=== PATIENT | male | born 1995 | race Caucasian/White ===

== ENCOUNTER 2019-02-24 12:40 | Emergency (ER) | payer OTHER, SELFPAY ==
[2019-02-24 12:48] VITALS: BP 124/67; PULSE 69; RESP 20; TEMP 36.7; O2SAT 100; BMI 24.1
--- NOTE | 2019-02-24 12:54 | ED_ITS ---
HPI - Skin/Abscess/Foreign Bdy <CLAUDIA Ni - Last Filed: 02/24/19 13:33> General Chief complaint: Skin/Abscess/Foreign Body Stated complaint: poison zulema x12 days Time Seen by Provider: 02/24/19 12:45 Source: patient Mode of arrival: ambulatory Limitations: no limitations History of Present Illness HPI narrative: The patient is a 23-year-old male nonsmoker who presents with a chief complaint of poison zulema. He states that he crawled through a garden, and then developed poison zulema after. It started 12 days ago. He states he is patches on his legs arms and genitals. Denies any shortness of breath. He states that he has tried some topical Benadryl, which he started for 2 days ago. He states he did not take anything for the previous 10 days. He denies any fevers nausea vomiting diarrhea, chest pain shortness of breath. He states he has had episodes of poison zulema like this and has required steroids in the past, which is what he is requesting now. He states he cannot take the itching anymore. Related Data Previous Rx's Medication Instructions Recorded prednisone 50 mg PO DAILY #5 tab 02/24/19 Review of Systems <CLAUDIA Ni - Last Filed: 02/24/19 13:33> Review of Systems Narrative: GENERAL: Denies chills, fatigue, malaise, fever, sweats. HEENT: Denies sinus pain, ear pain, sore throat, difficulty swallowing, dizziness. RESPIRATORY: Denies dyspnea, cough, wheezing, hemoptysis, sputum. CARDIOVASCULAR: Denies chest pain, palpitations, orthopnea, edema, GASTROINTESTINAL: Denies nausea, vomiting, abdominal pain, diarrhea, constipation, melena. : Denies dysuria, frequency, incontinence, hematuria, urinary retention. MUSCULOSKELETAL: denies weakness, joint pain, or bony pain SKIN: See HPI NEUROLOGIC: Denies weakness, headache, numbness, change in speech, confusion, seizures, incoordination. PSYCHIATRIC: No concerning psychosocial issues. 12 point review of systems is negative except for those stated above PFSH <CLAUDIA Ni - Last Filed: 02/24/19 13:33> Medical History (Updated 02/24/19 @ 13:29 by CLAUDIA Ni) Family history non-contributory (Acute) Social History Smoking Status: Never smoker Social History Smoking Status: Never smoker Exam <CLAUDIA Ni - Last Filed: 02/24/19 13:33> Narrative Exam Narrative: GENERAL: This is a well-nourished, well-developed patient, in no acute distress HEAD: Atraumatic. Normocephalic. No temporal or scalp tenderness. EYES: Pupils equal round and reactive. Extraocular motions intact. No scleral icterus. No injection or drainage. ENT: Nose without bleeding, purulent drainage or septal hematoma. Throat without erythema, tonsillar hypertrophy or exudate. Uvula midline. Airway patent. NECK: Trachea midline. No JVD or lymphadenopathy. Supple, nontender, no meningeal signs. CARDIOVASCULAR: Regular rate and rhythm RESPIRATORY: Clear to auscultation. Breath sounds equal bilaterally. No wheezes, rales, or rhonchi. No cough. No increased respiratory effort. No accessory muscle use. GASTROINTESTINAL: Abdomen soft, non-tender, nondistended. No hepato- splenomegaly, or palpable masses. No guarding. Active bowel sounds all 4 quadrants. EXTREMITIES: No clubbing, cyanosis, or edema. No joint tenderness, effusion, or edema noted. BACK: Nontender without deformity or crepitance. No flank tenderness. NEURO: AOx3. SKIN: 3 circular cm of crusting pustules on posterior left lower leg, also noted on anterior aspect of right forearm. Crusting pustules also noted across lower abdomen and genitals, along right side of penis on to testicles. Initial Vital Signs Initial Vital Signs: Vital Signs Temperature 98.1 F 02/24/19 12:48 Pulse Rate 69 02/24/19 12:48 Respiratory Rate 20 02/24/19 12:48 Blood Pressure 124/67 02/24/19 12:48 Pulse Oximetry 100 02/24/19 12:48 <Trent Lopez DO - Last Filed: 02/24/19 13:38> Initial Vital Signs Initial Vital Signs: Vital Signs Temperature 98.1 F 02/24/19 12:48 Pulse Rate 69 02/24/19 12:48 Respiratory Rate 20 02/24/19 12:48 Blood Pressure 124/67 02/24/19 12:48 Pulse Oximetry 100 02/24/19 12:48 Course <Yokastaterence MartinezCLAUDIA romero - Last Filed: 02/24/19 13:33> Vital Signs Vital signs: Vital Signs - 8 hr 02/24/19 12:48 Temperature 98.1 F Pulse Rate 69 Respiratory Rate 20 Blood Pressure 124/67 Pulse Oximetry 100 <Trent Lopez DO - Last Filed: 02/24/19 13:38> Vital Signs Vital signs: Vital Signs - 8 hr 02/24/19 12:48 Temperature 98.1 F Pulse Rate 69 Respiratory Rate 20 Blood Pressure 124/67 Pulse Oximetry 100 MDM - Skin/Abscess/Foreign Bdy <Yokasta CLAUDIA Monsivais - Last Filed: 02/24/19 13:33> MDM Narrative Medical decision making narrative: The patient is a 23-year-old male who presents with a chief complaint of poison zulema. Genital exam was performed with Ana CHAPMAN standby at bedside. The patient's exam is concerning for poison zulema, so I started him on a course of p.o. steroids. I did discuss at length that there are other etiologies that could cause pustules in the genital region, such as genital herpes. Discussed at length that he should follow up with his primary care provider. If it does not get better, should consider these other options. Discussed coming back to the ER for any acute concerns such as shortness of breath etc. Patient has no questions or concerns upon discharge. Discharge Plan Departure Patient Disposition: Home Clinical Impression: Contact dermatitis due to poison zulema Discharge Date/Time: 02/24/19 13:14 Instructions: Poison Zulema, Poison [place], Poison [place], DI for Contact Dermatitis Activity Restrictions/Additional Instructions: I have given you a prescription for 5 days of steroids. Please follow up with your primary care provider in the next few days. Please wash your hands immediately after you might have touched poison zulema or at least before you touch your genitals. Please remember if this steroids do not help, genital herpes can have a similar appearance in your groin. However given your rash elsewhere, I believe this is not likely at this point time. However please remember if it does not get better, this may be something to look into. I also suggest medications anet-gim-bpyazkl such as Benadryl. Prescriptions: New prednisone 50 mg tablet 50 mg PO DAILY Qty: 5 RF: 0 Referrals: [facility] [Provider Group] <Trent Lopez, - Last Filed: 02/24/19 13:38> Sign Out Provider Sign Out Attestation: I was available for consultation during this patient's emergency department encounter
--- NOTE | 2019-02-24 12:57 | PC.NURSE ---
pt reports he got exposed to poison aby, rash on back of leg, abdomen, and groin. groin has large rash on penis, scrotum, inner thigh. exam done as standby RN with GASTON Templeton.
== END 2019-02-24 13:14 | disposition home or self-care (01) ==
PROVIDERS: Emergency Provider Nurse Practitioner Family
DX: L23.7 Allergic contact dermatitis due to plants, except food (principal)
CPT/HCPCS: 99282

== ENCOUNTER 2020-12-12 19:00 | Emergency (ER) | payer OTHER, SELFPAY ==
[2020-12-12 19:19] VITALS: BP 141/73; PULSE 81; RESP 16; TEMP 36.6; O2SAT 100; BMI 26.0
--- NOTE | 2020-12-12 19:26 | ED.SKABFB ---
HPI - Skin/Abscess/Foreign Bdy General Chief complaint: Skin/Abscess/Foreign Body Stated complaint: Bump On Elbow, Redness Time Seen by Provider: 12/12/20 19:05 Source: patient Mode of arrival: Ambulatory Limitations: no limitations History of Present Illness HPI narrative: 25-year-old male nonsmoker with noncontributory medical history presents with a chief complaint of pain and redness overlying his right elbow for the past few days. He denies any injury or trauma. He denies any systemic symptoms such as fever, chills nor nausea or vomiting. Was seen and evaluated by his providers and put on an antibiotic for cellulitis. He presents today because things do not seem to be improving. He has taken 3 or 4 doses of the antibiotic but had not taken it today because he got too busy. He is able to flex and extend his elbow but with a minimally decreased range of motion secondary to pain. He has no red streaks and is otherwise well Related Data Home Medications Medication Instructions Recorded Confirmed ibuprofen 600 mg PO TID PRN 12/12/20 12/12/20 sulfamethoxazole-trimethoprim 1 tab PO BID 12/12/20 12/12/20 Review of Systems Constitutional Constitutional: Denies chills, Denies fatigue, Denies fever(s), Denies frequent falls, Denies lethargy and Denies weakness Eyes Eyes: Denies change in vision, Denies eye discharge, Denies irritation and Denies loss of vision ENT Ears, Nose, Mouth, and Throat: Denies change in voice, Denies dizziness, Denies neck pain, Denies sore throat and Denies throat swelling Cardiovascular Cardiovascular: Denies chest pain, Denies irregular heart rhythm, Denies lightheadedness, Denies palpitations, Denies dyspnea, Denies dyspnea on exertion and Denies orthopnea Respiratory Respiratory: Denies cough, Denies dyspnea, Denies dyspnea on exertion and Denies wheezing Gastrointestinal Gastrointestinal: Denies abdominal pain, Denies change in bowel habits, Denies diarrhea, Denies nausea and Denies vomiting Musculoskeletal Musculoskeletal: Denies neck pain and Denies numbness Integumentary/Breasts Skin/Breast: Denies pruritus, Reports erythema, Denies rash, Reports skin pain, Reports skin swelling and Denies wounds Neurologic Neurologic: Denies behavioral changes, Denies confusion, Denies dizziness, Denies frequent falls, Denies loss of vision, Denies numbness and Denies weakness Psychiatric Psychiatric: Denies anxiety, Denies behavioral changes, Denies confusion, Denies depression, Denies homicidal ideation and Denies suicidal ideation Endocrine Endocrine: Denies fatigue, Denies flushing and Denies palpitations Hematologic/Lymphatic Hematologic/Lymphatic: Denies easy bruising Allergic/Immunologic Allergic/Immunologic: Denies urticaria, Denies throat swelling and Denies wheezing Patient History Medical History Family history non-contributory Social History Smoking Status: Never smoker Smoking Status: Never smoker alcohol intake frequency: a few times a month Substance Use Type: does not use Exam Narrative Exam Narrative: GEN: AOx3 and in mild distress EYES: Pupils are equal, round, and reactive to light and accommodation. Extraoccular muscles are intact bilaterally. There is no subconjunctival hemorrhage or exudate. CHEST: Lungs are clear to auscultation bilaterally and free of wheezes, rales, or rhonchi. Heart rate is regular rhythm, there are no murmurs, clicks, rubs, or gallops. There is no chest wall tenderness. ABD: Abdomen is soft and nontender. There is no guarding or rebound. Bowel sounds are normal in all 4 quadrants. There is no mass or organomegaly. EXT: Patient has full range of motion of the right elbow with flexion, extension, pronation and supination. The erythema is limited to overlying the olecranon suggesting a bursitis with cellulitis as opposed to septic arthritis. There is no lymphangitis. SKIN: Otherwise Warm, pink, and dry. No erythema or rash Initial Vital Signs Initial Vital Signs: Vital Signs Temperature 97.8 F 12/12/20 19:19 Pulse Rate 81 12/12/20 19:19 Respiratory Rate 16 12/12/20 19:19 Blood Pressure 141/73 H 12/12/20 19:19 Pulse Oximetry 100 12/12/20 19:19 Course Vital Signs Vital signs: Vital Signs - 8 hr 12/12/20 19:19 Temperature 97.8 F Pulse Rate 81 Respiratory Rate 16 Blood Pressure 141/73 H Pulse Oximetry 100 MDM - Skin/Abscess/Foreign Bdy MDM Narrative Medical decision making narrative: Septic arthritis and gouty arthritis are considered however patient has no systemic symptoms and impressive range of motion for this to be the diagnosis. Additionally we had a lengthy discussion about whether not to consider this a antibiotic failure or if it is just too early. He has only had 3-4 doses and actually did not take any earlier today so I recommended he stay on the same antibiotic unless he had develops worsening symptoms a few days down the line or develops systemic findings. Furthermore this is most consistent with a septic bursitis however there is no evidence of a sufficient amount of induration or fluctuance overlying the elbow to suggest that an incision and drainage or needle aspiration would be beneficial. Return precautions given and questions answered to his apparent satisfaction Discharge Plan Departure Patient Disposition: Home Clinical Impression: Septic olecranon bursitis of right elbow Instructions: DI for Bursitis Activity Restrictions/Additional Instructions: *You have been diagnosed with [right olecranon bursitis ] *What to do: *Please continue to take your regular medications as directed. [ ] New medication prescriptions sent to your pharmacy: [ ] [ ] New medication written as a paper prescription [ ] No new medications given *Please follow up with your primary care provider in 2-3 days, call for an appointment. Let them know you were seen in the Emergency Department and that we ask that you be seen in follow up. We will electronically transmit a record of today's note if your PCP is in our system *If you do not have a primary care provider please contact the [facility] Resource line at [phone]. They will ask some questions about your medical history and help get you set up with a doctor in the community. *Return to Emergency Department if you should have any new, worsening or concerning symptoms, such as [fever greater than 101 F, shaking chills, worsening pain, persistent vomiting or other bothersome symptoms] Prescriptions: No Action sulfamethoxazole-trimethoprim 800-160 mg tablet 1 tab PO BID RF: 0 ibuprofen 600 mg tablet 600 mg PO TID PRN (Reason: Pain (Scale Score 7-10)) RF: 0 Referrals: [facility] [Outside]
== END 2020-12-12 19:49 | disposition home or self-care (01) ==
PROVIDERS: Emergency Provider Emergency Medicine
DX: M71.121 Other infective bursitis, right elbow (principal)
CPT/HCPCS: 99281

== ENCOUNTER 2023-04-21 12:32 | Day surgery (SDC) | payer OTHER, SELFPAY ==
[2023-04-15 11:29] VITALS: BMI 24.4
[2023-04-21] VITALS (7 sets, daily range): BP systolic 115–136; BP diastolic 60–87; PULSE 60–91; RESP 11–20; TEMP 36.3–37.1; O2SAT 97–100; BMI 24.5
[2023-04-21] MEDS: LACTATED RINGERS 1,000 ML 42 ML IV (12:53)
[2023-04-21] MEDS: ACETAMINOPHEN 325 MG TABLET 975 MG PO (13:03)
[2023-04-21] MEDS: OXYMETAZOLINE NASAL SPRAY 30 ML 2 SPRAYS NASAL ×2 (13:04→14:18)
--- NOTE | 2023-04-21 13:38 | PM.PREOP ---
Pre-operative Note Interval Note History & Physical reviewed/Exam performed by Physician: Yes Changes to H&P: No
--- NOTE | 2023-04-21 13:40 | PM.OP.1 ---
Operative Date/Time/Diagnoses Date of procedure: 04/21/23 Time of procedure: 15:21 Pre-op diagnosis: Nasal airway obstruction, septal deviation, sebastian bullosa left middle turbinate, inferior turbinate hypertrophy Post-op diagnosis: same Procedure & Clinicians Procedure: 1. Left endoscopic sebastian bullosa resection 2. Septoplasty 3. Bilateral inferior turbinate reduction via intramural cautery Same procedure as scheduled: Yes Indications: 27 Year old with the above diagnoses incompletely managed with medical therapy presents for the above procedure. Following discussion of the material risks benefits complications and alternatives, the patient elected to proceed. Surgeon: Gus George Click Yes if Unassisted: Yes Anesthesia Type: General and Local Operative Notes Findings: 3+ right septal deviation, large sebastian bullosa of the left middle turbinate, resected. Healthy mucosa. Ixxd-tnhwikd-ifof-right inferior turbinate hypertrophy. Caudal septum bowed to the left inferiorly, reduced. Estimated Blood Loss (mL): 30 Procedure in detail: Following identification and confirmation of consent as well as preoperative Afrin nasal spray, the patient was brought to the operating room suite and placed in the supine position. General endotracheal anesthesia was administered. I infiltrated the septum widely bilaterally with 1% lidocaine 1 100,000 epinephrine followed by temporary packing with cotton with Afrin and 4% lidocaine. Following sterile prep and drape, the packing was removed and I performed a right derek-transfixion incision, elevated the right mucoperichondrial and mucoperiosteal flap. I disarticulated near the bony/cartilaginous junction and elevated the left mucoperiosteal flap. Deviated portions of the perpendicular plate of the ethmoid and vomer were resected. The residual quadrilateral cartilage was further straightened by trimming it inferiorly as well as reducing the maxillary crest. A 2 mm strip of cartilage paralleling the residual 1 cm dorsal (NOT caudal) strut was resected to further straighten the quadrilateral cartilage. The hemitransfixion incision was closed with interrupted 5 0 chromic followed by a running 4 0 plain gut mattress suture to reapproximate the septal flaps. The head of each inferior turbinate had been previously infiltrated with additional local anesthetic and a 25 gauge spinal needle was used to impale the length of the turbinate, with cautery on a setting of 15 activated on slow withdrawal over 2 passes each side. The turbinates were then outfractured. Under endoscopic guidance the posterior and anterior superior insertion of the left middle turbinate was then infiltrated with additional local anesthetic via spinal needle. The middle turbinate was slightly medialized and the lateral portion of the sebastian bullosa was resected with the microdebrider, until the prior air cell was completely exposed and the middle meatus was widely patent. The mucosal resection edges were cauterized with suction electrocautery on a setting of 10. At case completion, 20/1000th of an inch silastic splints were placed bilaterally, sutured anteriorly with a single 4 0 nylon. The procedure completed, sponge and needle counts were correct and the patient was extubated in the operating room and taken to recovery room in stable condition without known complication. Complications: none Post-operative Condition: stable Disposition: same day surgery Plan for aftercare: Nasal saline every hour while awake, begin irrigations t.i.d. tomorrow if desired. Polysporin to the nostrils at all times, Tylenol alternating with Advil for pain control, oxycodone for breakthrough pain. Elevate head of bed, no nose blowing, no straining for 2 weeks. Ice directly under the nose on the upper lip has tolerated 24-48 hours at a minimum. Follow-up in 1 week for nasal splint removal.
--- NOTE | 2023-04-21 14:16 | SUR.OPER ---
Supine on padded OR bed, head on gel donut, arms padded and tucked at sides, legs uncrossed, safety belt at thigh, tape over blanket over lower legs .
[2023-04-21] MEDS: LIDOCAINE 4% SOLN 50 ML 20 ML TOP (14:19)
[2023-04-21] MEDS: LIDOCAINE 1% W/EPI 20 ML INJ (14:19)
[2023-04-21] MEDS: BACITRACIN 28 GM OINT 1 APPLIC TOP (14:21)
[2023-04-21] MEDS: OXYCODONE IR 5 MG TABLET PO ×2 (15:44→16:14)
[2023-04-21] MEDS: HYDROMORPHONE 1 MG INJ IV ×2 (15:53→15:58)
[2023-04-21] MEDS: ONDANSETRON 4 MG/2 ML INJ IV (16:29)
== END 2023-04-21 17:07 | disposition home or self-care (01) ==
PROVIDERS: Referring Provider Otolaryngology; Visit Provider Otolaryngology
PROC: 09QM4ZZ Repair Nasal Septum, Percutaneous Endoscopic Approach (ICD-10-PCS; CPT 30520; principal; 2023-04-21 14:00)
DX: J34.2 Deviated nasal septum (principal); J98.8 Other specified respiratory disorders; J34.3 Hypertrophy of nasal turbinates
CPT/HCPCS: 30520; 30802; 31240; J1170; J2250; J2405; J2704; J3010